=== PATIENT | male | born 1985 | race African-American/Black ===

== ENCOUNTER 2020-11-17 07:14 | Day surgery (SDC) | payer SELFPAY ==
[~2020-11-17 07:14] MED LIST: Lactated Ringers 1,000 ML IV SCH
--- NOTE | 2020-11-17 07:49 | PCM.PREANE ---
Preanesthetic Assessment - Procedure Proposed Procedure: EGD - Anesthesia/Transfusion/Family Hx Anesthesia History: Prior Anesthesia Without Reaction Transfusion History: No Prior Transfusion(s) - Review of Systems General: No Symptoms Pulmonary: No Symptoms Cardiovascular: No Symptoms Neurological: Other ("pinched nerve" on right flank since 2019 has not resolved) Other: Reports: None - Physical Assessment NPO Status Date: 11/16/20 NPO Status Time: 20:00 Vital Signs: Last Vital Signs Temp 97.9 F 11/17/20 07:25 Pulse 76 11/17/20 07:25 Resp 15 11/17/20 07:25 BP 147/82 H 11/17/20 07:25 Pulse Ox 96 11/17/20 07:25 Height: 5 ft 7 in Weight: 76.204 kg ASA Class: 2 Mental Status: Alert & Oriented x3 Airway Class: Mallampati = 3 Dentition: Reports: Normal Dentition Thyro-Mental Finger Breadths: 3 Mouth Opening Finger Breadths: 3 ROM/Head Extension: Full Lungs: Clear to Auscultation, Normal Respiratory Effort Cardiovascular: Regular Rate, Regular Rhythm - Allergies Allergies/Adverse Reactions: Allergies Allergy/AdvReac Type Severity Reaction Status Date / Time No Known Allergies Allergy Verified 11/14/20 08:08 - Acknowledgements Anesthesia Type Planned: General Anesthesia Pt an Appropriate Candidate for the Planned Anesthesia: Yes Alternatives and Risks of Anesthesia Discussed w Pt/Guardian: Yes Pt/Guardian Understands and Agrees with Anesthesia Plan: Yes PreAnesthesia Questionnaire - Past Health History Medical/Surgical History: Denies Medical/Surgical History Gastrointestinal History: Reports: Other (See Below) Other Gastrointestinal History: c/o bloody stools - Past Surgical History Head Surgeries/Procedures: Reports: None GI Surgical History: Reports: Hernia, Abdominal Other GI Surgeries/Procedures: hx umbilical hernia repair - SUBSTANCE USE Tobacco Use Status *Q: Never Tobacco User - HOME MEDS Home Medications: Home Meds methocarbamoL [Methocarbamol] 500 mg PO TID 11/14/20 [History] - CURRENT (IN HOUSE) MEDS Current Meds: Current Medications Lactated Ringer's (Ringers, Lactated) 1,000 mls @ 125 mls/hr IV ASDIRECTED [facility] Last Admin: 11/17/20 07:38 Dose: 125 mls/hr Documented by:
[2020-11-17] MEDS ORDERED: fentaNYL 100 MCG/2 ML SDV ONE (08:07)
[2020-11-17] MEDS ORDERED: Propofol 200 MG/20 ML SDV ONE (08:07)
--- NOTE | 2020-11-17 08:58 | PCM.OPNOTE ---
- General Post-Op/Procedure Note Date of Surgery/Procedure: 11/17/20 Operative Procedure(s): Esophagogastroduodnoscopy with antral biopsies Pre Op Diagnosis: Recent episode of melena Post-Op Diagnosis: Mild chronic gastritis Anesthesia Technique: MAC (ASA II) Primary Surgeon: Jordan Moya Condition: Good Free Text/Narrative:: DICTATION 206291 CPT CODE 63672
[2020-11-17] MEDS ORDERED: Lactated Ringers 1,000 ML IV SCH (09:00)
--- NOTE | 2020-11-17 09:02 | PCM.POSTAN ---
POST ANESTHESIA ASSESSMENT - MENTAL STATUS Mental Status: Alert, Oriented - VITAL SIGNS Vital Signs: Last Vital Signs Temp 97.9 F 11/17/20 07:25 Pulse 76 11/17/20 07:25 Resp 15 11/17/20 07:25 BP 147/82 H 11/17/20 07:25 Pulse Ox 96 11/17/20 07:25 - RESPIRATORY Respiratory Status: Respiratory Rate WNL, Airway Patent, O2 Saturation Stable - CARDIOVASCULAR CV Status: Pulse Rate WNL, Blood Pressure Stable - GASTROINTESTINAL GI Status: No Symptoms - PAIN Pain Score: 0 - POST OP HYDRATION Hydration Status: Adequate & Stable
--- NOTE | 2020-11-17 09:27 | PCM48HPAN ---
Post Anesthesia Note - EVALUATION WITHIN 48HRS OF ANESTHETIC Vital Signs in Normal Range: Yes Patient Participated in Evaluation: Yes Respiratory Function Stable: Yes Airway Patent: Yes Cardiovascular Function Stable: Yes Hydration Status Stable: Yes Pain Control Satisfactory: Yes Nausea and Vomiting Control Satisfactory: Yes Mental Status Recovered: Yes Vital Signs: Last Vital Signs Temp 98.1 F 11/17/20 08:58 Pulse 67 11/17/20 09:19 Resp 14 11/17/20 09:19 BP 112/77 11/17/20 09:19 Pulse Ox 95 11/17/20 09:19 - COMMENTS/OBSERVATIONS Free Text/Narrative:: Pt doing well post-op. VSS. No apparent anesthetic complications. Dr. Andrew Vu
--- NOTE | 2020-11-18 11:58 | OR ---
SURGEON: Jordan Moya M.D. DATE OF PROCEDURE: 11/17/2020 OPERATION PERFORMED: Esophagogastroduodenoscopy with antral biopsy. PRIMARY SURGEON: Jordan Moya M.D. ANESTHESIA: MAC. ASA CLASSIFICATION: II. PREOPERATIVE DIAGNOSIS: Recent episode of melena. POSTOPERATIVE DIAGNOSIS: Mild chronic gastritis without ulceration. DESCRIPTION OF PROCEDURE: The patient was taken to the endoscopy room and positioned on the endoscopy table in the supine position. Time-out was called for appropriate identification of the patient and procedure. Monitored anesthesia care was provided. The bite block was placed between the patient's teeth. The gastroscope was inserted through the bite block into the oropharynx and advanced without difficulty through the esophagus and stomach into the duodenum. Examination was carried out in a retrograde fashion. The duodenum shows no acute inflammatory changes or ulcerations. The antrum does show mild chronic gastritis. No acute ulcerations were noted. Biopsies of the antrum were obtained to look for the presence of Helicobacter pylori. The gastroscope was then retroflexed to visualize the proximal stomach. No proximal ulcerations were noted. The GE junction shows no acute inflammatory changes when viewed in a retroflexed view. The gastroscope was then straightened and slowly withdrawn. The GE junction was well defined and shows no acute inflammatory changes or ulcerations. The esophagus itself demonstrated good contractility. No mid or proximal lesions were identified. The vocal cords were briefly visualized as the scope was withdrawn. No vocal cord lesions were identified. The oropharynx was suctioned clear of secretions and the gastroscope removed. The patient tolerated the procedure well and was taken to recovery room in stable condition. SARAVANAN / CARISSA /[id number]
== END 2020-11-17 09:55 | disposition home or self-care (01) ==
LOC: MW.SDS 07:14
PROVIDERS: ATTEND Surgery
DX: K29.50 Unspecified chronic gastritis without bleeding (principal); B96.81 Helicobacter pylori [H. pylori] as the cause of diseases classified elsewhere; Z79.899 Other long term (current) drug therapy; Z98.890 Other specified postprocedural states
CPT/HCPCS: 43239; 88305; 88342; J2704; J3010; J7120